=== PATIENT | female | born 1990 | race Caucasian/White ===

== ENCOUNTER 2016-09-01 20:36 | Emergency (ER) | payer MEDICAID ==
[~2016-09-01] VITALS: Ht 177.8 cm; Wt 136.4 kg
[2016-09-01 20:41] VITALS: BP 147/95; PULSE 115; RESP 16; O2SAT 97
[2016-09-01] MEDS ORDERED: METO-301 PO (20:45)
[2016-09-01] MEDS ORDERED: INSU100V7 PO (20:45)
[2016-09-01] MEDS ORDERED: INSU100V28 SUBQ (20:45)
[2016-09-01] MEDS ORDERED: GLIP10TA10 PO (20:45)
[2016-09-01] MEDS ORDERED: KLO1T PO (20:45)
[2016-09-01] MEDS ORDERED: METH10TA2 PO (20:45)
--- NOTE | 2016-09-01 21:32 | DRSVH ---
PROCEDURE: X-RAY FINGERS, TWO VIEWS INDICATIONS: trauma TECHNIQUE: AP hand, 2 views of the third and fourth finger(s) acquired. COMPARISON: None. FINDINGS: Bones: No dislocations. No suspicious bony lesions. There is a nondisplaced fracture involving the middle phalanx of the fourth digit, extending towards but not clearly into the distal articular surf bennie of that digit Soft tissues: No suspicious soft tissue calcifications. IMPRESSION: Fourth middle phalangeal nondisplaced diagonal fracture. Dictated by: Daniel Bass M.D. on 09/01/2016 at 21:28 Approved by: Daniel Bass M.D. on 09/01/2016 at 21:30
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
[2016-09-01] MEDS ORDERED: _oxyCODONE/APAP 5-325 mg Tablet PO PRN (21:50)
[2016-09-01 22:28] VITALS: BP 147/95; PULSE 115; RESP 16; O2SAT 97
== END 2016-09-01 22:28 | disposition home or self-care (01) ==
LOC: SED 20:36
DX: S62.624A Displaced fracture of middle phalanx of right ring finger, initial encounter for closed fracture (principal); S63.612A Unspecified sprain of right middle finger, initial encounter; W03.XXXA Other fall on same level due to collision with another person, initial encounter; Y93.89 Activity, other specified; Y92.89 Other specified places as the place of occurrence of the external cause; Y99.8 Other external cause status; E11.9 Type 2 diabetes mellitus without complications; Z79.4 Long term (current) use of insulin; Z59.0 Homelessness; Z88.1 Allergy status to other antibiotic agents
CPT/HCPCS: 73140; 96372; 99284; J1885